=== PATIENT | male | born 1945 | race Caucasian/White ===

== ENCOUNTER → 2020-03-26 | Outpatient (CLI) | payer OTHER | LOC: SJCVC 09:28 | PROVIDERS: ATTEND Internal Medicine Cardiovascular Disease | DX: I10 Essential (primary) hypertension (principal); R94.31 Abnormal electrocardiogram [ECG] [EKG]; E78.00 Pure hypercholesterolemia, unspecified; Z79.899 Other long term (current) drug therapy; Z82.49 Family history of ischemic heart disease and other diseases of the circulatory system ==

== ENCOUNTER → 2021-03-24 | Outpatient (CLI) | payer OTHER | LOC: SJCVCIMAG 08:48 | PROVIDERS: ATTEND Internal Medicine Cardiovascular Disease | DX: I10 Essential (primary) hypertension (principal); E78.5 Hyperlipidemia, unspecified ==